=== PATIENT | male | born 2000 | race Caucasian/White ===

== ENCOUNTER 2021-01-13 15:37 | Emergency (ER) | payer SELFPAY ==
[~2021-01-13] VITALS: Ht 177.8 cm; Wt 68.6 kg
[2021-01-13 15:41] VITALS: BP 105/76; Ht 177.8 cm; Wt 68.6 kg
[2021-01-13] MEDS ORDERED: VIBRAMYCIN 100100 MG PO (17:44)
[2021-01-13 17:47] LABS: BILIRUBIN NEGATIVE (NEGATIVE); KETONE MODERATE mg/dL (NEGATIVE); NITRITE NEGATIVE (NEGATIVE); UROBILINOGEN NORMAL mg/dL (< 2)
[2021-01-14] MEDS ORDERED: DICLOFENAC SODI50 MG PO (23:06)
== END 2021-01-13 18:22 | disposition home or self-care (01) ==
LOC: D.ER 15:37
PROVIDERS: Emergency Medicine
DX: N45.1 Epididymitis (principal)

== ENCOUNTER 2021-01-14 21:39 | Emergency (ER) | payer SELFPAY ==
[~2021-01-14] VITALS: Ht 177.8 cm; Wt 72.6 kg
[~2021-01-14 21:39] MED LIST: VIBRAMYCIN 100100 MG PO
[2021-01-14 21:51] VITALS: BP 110/78; Ht 177.8 cm; Wt 72.6 kg
[2021-01-14 22:10] LABS: BILIRUBIN NEGATIVE (NEGATIVE); KETONE NEGATIVE (NEGATIVE); NITRITE NEGATIVE (NEGATIVE); UROBILINOGEN NORMAL mg/dL (< 2)
[2021-01-14 22:50] LABS: BASOPHILS 0.6 % (0-2); EOSINOPHILS 3.2 % (0-7); HEMATOCRIT 43.3 % (42.0-54.0); LYMPHOCYTES 17.9 % (15-50); MCH 31.9 pg (26.0-34.0); MCHC 34.5 g/dL (31.0-37.0); MCV 92.5 fL (80.0-100.0); MEAN PLATELET VOLUME 7.9 fL (7.4-10.4); MONOCYTES 8.6 % (2-11); NEUTROPHILS 69.7 % (40-80); PLATELET COUNT 282 10x3/uL (130-400); RBC 4.68 10x6/uL (4.20-6.10); WBC 8.4 10x3/uL (4.8-10.8)
[2021-01-14 23:04] LABS: CALC OSMOLALITY 282 mosm/kg (275-300); CALCIUM 8.8 mg/dL (8.5-10.1); CHLORIDE - SERUM 104 mmol/L (98-107); CREATININE - SERUM 1.1 mg/dL (0.6-1.3); GLUCOSE 79 mg/dL (74-106); POTASSIUM - SERUM 3.6 mmol/L (3.5-5.1); SODIUM 141 mmol/L (136-145); UREA NITROGEN 20 mg/dL (7-18); eGFR NON AFRICAN AMERICAN > 90 mL/min (90-120)
[2021-01-14] MEDS ORDERED: DICLOFENAC SODI50 MG PO (23:06)
[2021-01-14 23:10] LABS: ALBUMIN 4.1 g/dL (3.4-5.0); ALKALINE PHOSPHATASE 72 U/L (30-120); ALT (SGPT) 27 U/L (10-68); BILIRUBIN - TOTAL 0.41 mg/dL (0.2-1.3); PROTEIN - SERUM 7.6 g/dL (6.4-8.2)
== END 2021-01-14 23:20 | disposition home or self-care (01) ==
LOC: D.ER 21:39
PROVIDERS: Family Medicine
DX: N50.811 Right testicular pain (principal)